=== PATIENT | male | born 1960 | race Caucasian/White ===

== ENCOUNTER 2021-01-22 08:38 | Outpatient (CLI) | payer MEDICARE, BC | END 2021-01-22 08:39 | disposition home or self-care (01) | LOC: CSHWCC 08:38 | PROVIDERS: ATTEND Nurse Practitioner Family | DX: L89.93 Pressure ulcer of unspecified site, stage 3 (principal); I87.2 Venous insufficiency (chronic) (peripheral); E11.621 Type 2 diabetes mellitus with foot ulcer; L97.509 Non-pressure chronic ulcer of other part of unspecified foot with unspecified severity; I89.0 Lymphedema, not elsewhere classified; R60.0 Localized edema; E11.40 Type 2 diabetes mellitus with diabetic neuropathy, unspecified; E11.65 Type 2 diabetes mellitus with hyperglycemia; G82.20 Paraplegia, unspecified; G89.4 Chronic pain syndrome; M12.9 Arthropathy, unspecified; M13.80 Other specified arthritis, unspecified site; E66.3 Overweight; Z85.46 Personal history of malignant neoplasm of prostate ==

== ENCOUNTER 2021-02-05 10:00 | Outpatient (CLI) | payer MEDICARE, BC | END 2021-02-05 10:01 | disposition home or self-care (01) | LOC: CSHWCC 10:00 | PROVIDERS: ATTEND Nurse Practitioner Family | DX: L89.93 Pressure ulcer of unspecified site, stage 3 (principal); I87.2 Venous insufficiency (chronic) (peripheral); E11.621 Type 2 diabetes mellitus with foot ulcer; L97.509 Non-pressure chronic ulcer of other part of unspecified foot with unspecified severity; E11.40 Type 2 diabetes mellitus with diabetic neuropathy, unspecified; E11.65 Type 2 diabetes mellitus with hyperglycemia; I89.0 Lymphedema, not elsewhere classified; R60.0 Localized edema; G82.20 Paraplegia, unspecified; G89.4 Chronic pain syndrome; M12.9 Arthropathy, unspecified; M13.80 Other specified arthritis, unspecified site; E66.3 Overweight; Z85.46 Personal history of malignant neoplasm of prostate ==

== ENCOUNTER 2021-02-12 09:37 | Outpatient (CLI) | payer MEDICARE, BC | END 2021-02-12 09:38 | disposition home or self-care (01) | LOC: CSHWCC 09:37 | PROVIDERS: ATTEND Nurse Practitioner Family | DX: L89.93 Pressure ulcer of unspecified site, stage 3 (principal); E11.621 Type 2 diabetes mellitus with foot ulcer; R60.0 Localized edema; E11.40 Type 2 diabetes mellitus with diabetic neuropathy, unspecified; E11.65 Type 2 diabetes mellitus with hyperglycemia; E66.3 Overweight; G82.20 Paraplegia, unspecified; G89.4 Chronic pain syndrome; I87.2 Venous insufficiency (chronic) (peripheral); M12.9 Arthropathy, unspecified; M13.80 Other specified arthritis, unspecified site; I89.0 Lymphedema, not elsewhere classified; Z85.46 Personal history of malignant neoplasm of prostate | CPT/HCPCS: 29581; 99213; G0463 ==

== ENCOUNTER 2021-02-26 09:08 | Outpatient (CLI) | payer MEDICARE, BC | END 2021-02-26 09:09 | disposition home or self-care (01) | LOC: CSHWCC 09:08 | PROVIDERS: ATTEND Nurse Practitioner Family | DX: L89.93 Pressure ulcer of unspecified site, stage 3 (principal); I87.2 Venous insufficiency (chronic) (peripheral); E11.621 Type 2 diabetes mellitus with foot ulcer; E11.40 Type 2 diabetes mellitus with diabetic neuropathy, unspecified; I89.0 Lymphedema, not elsewhere classified; R60.0 Localized edema; E11.65 Type 2 diabetes mellitus with hyperglycemia; G82.20 Paraplegia, unspecified; G89.4 Chronic pain syndrome; M13.80 Other specified arthritis, unspecified site; M12.9 Arthropathy, unspecified; E66.3 Overweight; Z85.46 Personal history of malignant neoplasm of prostate ==

== ENCOUNTER 2021-03-19 08:55 | Outpatient (CLI) | payer MEDICARE, BC | END 2021-03-19 08:56 | disposition home or self-care (01) | LOC: CSHWCC 08:55 | PROVIDERS: ATTEND Nurse Practitioner Family | DX: L89.93 Pressure ulcer of unspecified site, stage 3 (principal); I87.2 Venous insufficiency (chronic) (peripheral); E11.621 Type 2 diabetes mellitus with foot ulcer; E11.40 Type 2 diabetes mellitus with diabetic neuropathy, unspecified; E11.65 Type 2 diabetes mellitus with hyperglycemia; L97.509 Non-pressure chronic ulcer of other part of unspecified foot with unspecified severity; E66.3 Overweight; G82.20 Paraplegia, unspecified; G89.4 Chronic pain syndrome; I89.0 Lymphedema, not elsewhere classified; M12.9 Arthropathy, unspecified; M13.80 Other specified arthritis, unspecified site; R60.0 Localized edema; Z85.46 Personal history of malignant neoplasm of prostate | CPT/HCPCS: 29581; 97139; G0463; 99213 ==

== ENCOUNTER 2021-04-09 09:20 | Outpatient (CLI) | payer MEDICARE, BC | END 2021-04-09 09:21 | disposition home or self-care (01) | LOC: CSHWCC 09:20 | PROVIDERS: ATTEND Nurse Practitioner Family | DX: L89.93 Pressure ulcer of unspecified site, stage 3 (principal); I87.2 Venous insufficiency (chronic) (peripheral); E11.621 Type 2 diabetes mellitus with foot ulcer; L97.509 Non-pressure chronic ulcer of other part of unspecified foot with unspecified severity; E11.40 Type 2 diabetes mellitus with diabetic neuropathy, unspecified; E11.65 Type 2 diabetes mellitus with hyperglycemia; I89.0 Lymphedema, not elsewhere classified; R60.0 Localized edema; G82.20 Paraplegia, unspecified; G89.4 Chronic pain syndrome; M12.9 Arthropathy, unspecified; M13.80 Other specified arthritis, unspecified site; E66.3 Overweight; Z85.46 Personal history of malignant neoplasm of prostate | CPT/HCPCS: 99213; G0463 ==

== ENCOUNTER 2021-07-14 08:50 | Outpatient (CLI) | payer MEDICARE, BC | END 2021-07-14 08:51 | disposition home or self-care (01) | LOC: CSHWCC 08:50 | PROVIDERS: ATTEND Nurse Practitioner Family | DX: L89.93 Pressure ulcer of unspecified site, stage 3 (principal); R60.0 Localized edema | CPT/HCPCS: 97139; G0463; 99213 ==

== ENCOUNTER 2021-08-04 10:00 | Outpatient (CLI) | payer MEDICARE, BC | END 2021-08-04 10:01 | disposition home or self-care (01) | LOC: CSHWCC 10:00 | PROVIDERS: ATTEND Nurse Practitioner Family | DX: L89.93 Pressure ulcer of unspecified site, stage 3 (principal); R60.0 Localized edema | CPT/HCPCS: 29581 ==

== ENCOUNTER 2021-08-20 09:10 | Outpatient (CLI) | payer MEDICARE, BC | END 2021-08-20 09:11 | disposition home or self-care (01) | LOC: CSHWCC 09:10 | PROVIDERS: ATTEND Nurse Practitioner Family | DX: L89.93 Pressure ulcer of unspecified site, stage 3 (principal); R60.0 Localized edema | CPT/HCPCS: 29581; 97139; 97607; G0463; 99212 ==

== ENCOUNTER 2021-08-27 10:47 | Outpatient (CLI) | payer MEDICARE, BC | END 2021-08-27 10:48 | disposition home or self-care (01) | LOC: CSHWCC 10:47 | PROVIDERS: ATTEND Nurse Practitioner Family | DX: L89.93 Pressure ulcer of unspecified site, stage 3 (principal); R60.0 Localized edema | CPT/HCPCS: 29581; 97607 ==

== ENCOUNTER 2021-09-03 09:19 | Outpatient (CLI) | payer MEDICARE, BC | END 2021-09-03 09:20 | disposition home or self-care (01) | LOC: CSHWCC 09:19 | PROVIDERS: ATTEND Nurse Practitioner Family | DX: L89.893 Pressure ulcer of other site, stage 3 (principal); R60.0 Localized edema | CPT/HCPCS: 29581; 97607 ==

== ENCOUNTER 2021-09-10 11:11 | Outpatient (CLI) | payer MEDICARE, BC | END 2021-09-10 11:12 | disposition home or self-care (01) | LOC: CSHWCC 11:11 | PROVIDERS: ATTEND Nurse Practitioner Family | DX: S91.102D Unspecified open wound of left great toe without damage to nail, subsequent encounter (principal); L89.93 Pressure ulcer of unspecified site, stage 3; R60.0 Localized edema ==

== ENCOUNTER 2021-09-11 11:58 | Day surgery (SDC) | payer MEDICARE, BC ==
[2021-09-11] MEDS ORDERED: Lidocaine 1% PF 5 ML VIAL ONE (12:39)
[2021-09-11] MEDS ORDERED: Sodium Bicarbonate 2.5 MEQ/5 ML VIAL ONE (12:40)
[2021-09-11 13:11] VITALS: BP 146/74; TEMP 98.4
== END 2021-09-11 15:05 | disposition home or self-care (01) ==
LOC: CSHRAD 11:58
PROVIDERS: ATTEND Specialist
PROC: B02B1ZZ Computerized Tomography (CT Scan) of Spinal Cord using Low Osmolar Contrast (ICD-10-PCS; principal; 2021-09-11)
DX: M54.12 Radiculopathy, cervical region (principal); M48.02 Spinal stenosis, cervical region; M43.12 Spondylolisthesis, cervical region; M51.24 Other intervertebral disc displacement, thoracic region; M51.16 Intervertebral disc disorders with radiculopathy, lumbar region; M48.061 Spinal stenosis, lumbar region without neurogenic claudication; M48.07 Spinal stenosis, lumbosacral region; M96.1 Postlaminectomy syndrome, not elsewhere classified; G89.4 Chronic pain syndrome; E11.9 Type 2 diabetes mellitus without complications; Z79.4 Long term (current) use of insulin; Z79.899 Other long term (current) drug therapy; Z91.041 Radiographic dye allergy status
CPT/HCPCS: 62302; 62304; 62305; 72126; 72128; 72132

== ENCOUNTER 2021-09-17 11:32 | Outpatient (CLI) | payer MEDICARE, BC | END 2021-09-17 11:33 | disposition home or self-care (01) | LOC: CSHWCC 11:32 | PROVIDERS: ATTEND Nurse Practitioner Family | DX: S91.102D Unspecified open wound of left great toe without damage to nail, subsequent encounter (principal); L89.93 Pressure ulcer of unspecified site, stage 3; R60.0 Localized edema | CPT/HCPCS: 11750; 29581; 97607 ==

== ENCOUNTER → 2021-09-24 | Outpatient (CLI) | payer MEDICARE, BC | LOC: CSHWCC 15:16 | PROVIDERS: ATTEND Nurse Practitioner Family | DX: L89.93 Pressure ulcer of unspecified site, stage 3 (principal); R60.0 Localized edema | CPT/HCPCS: 29581; 97607 ==

== ENCOUNTER 2021-09-30 14:35 | Outpatient (CLI) | payer MEDICARE, BC | END 2021-09-30 14:36 | disposition home or self-care (01) | LOC: CSHWCC 14:35 | PROVIDERS: ATTEND Nurse Practitioner Family | DX: L89.93 Pressure ulcer of unspecified site, stage 3 (principal); S91.309D Unspecified open wound, unspecified foot, subsequent encounter; R60.0 Localized edema ==

== ENCOUNTER 2021-10-08 14:36 | Outpatient (CLI) | payer MEDICARE, BC | END 2021-10-08 14:37 | disposition home or self-care (01) | LOC: CSHWCC 14:36 | PROVIDERS: ATTEND Nurse Practitioner Family | DX: L89.93 Pressure ulcer of unspecified site, stage 3 (principal); R60.0 Localized edema ==

== ENCOUNTER 2021-10-15 11:05 | Emergency (ER) | payer MEDICARE, BC ==
[2021-10-15 13:27] LABS: #Eosinphils 0.3 10x3/uL (0.0-0.5); #Monocytes 0.4 10x3/uL (0.0-1.1); #Neutrophils 4.7 10x3/uL (1.5-8.4); %Basophils 0.5 % (0.0-2.0); %Eosinophils 3.7 % (0.0-6.0); %Monocytes 5.6 % (0.0-10.0); %Neutrophils 64.4 % (40.0-75.0); Hemoglobin 10.7 g/dL (13.5-17.5); Mean Corpuscular HGB CONC 31.9 g/dL (32.0-36.0); Mean Corpuscular Hemoglobin 26.6 pg (27.0-33.0); Mean Corpuscular Volume 83.1 fl (81.2-95.1); Mean Platelet Volume 9.4 fl (7.4-10.4); Platelet Count 207 10x3/uL (150-450); RBC Distribution Width 14.2 % (11.5-14.5); Red Blood Cell (RBC) Count 4.03 10x6/uL (4.32-5.72); White Blood Cell (WBC) Count 7.4 10x3/uL (3.5-10.5)
[2021-10-15 13:41] LABS: ALT (SGPT) 18 U/L (8-55); AST (SGOT) 15 U/L (5-34); Albumin 3.8 g/dL (3.4-4.8); Alkaline Phosphatase 79 U/L (40-110); Anion Gap 14 mmol/L (10-20); BUN (Urea Nitrogen) 19 mg/dL (8.4-25.7); Bilirubin, Total 0.5 mg/dL (0.2-1.2); Calc. Creatinine Clearance 0 mL/min (70-130); Calcium 8.6 mg/dL (7.8-10.44); Carbon Dioxide 28 mmol/L (23-31); Chloride 101 mmol/L (98-107); Estimated GFR 81; Globulin 2.8 g/dL (2.4-3.5); Glucose 114 mg/dL (80-115); Potassium 4.4 mmol/L (3.5-5.1); Protein, Total 6.6 g/dL (5.8-8.1); Sodium 139 mmol/L (136-145)
[2021-10-15 14:06] LABS: Bilirubin Neg (Negative); Blood, Urine Negative (Negative); Clarity Clear (Clear); Glucose, Urine (Dipstick) >=1000 mg/dL (Negative); Ketone, Urine 5 mg/dL (Negative); Leukocyte 25 (Negative); Nitrite Negative (Negative); Protein, Urine (Dipstick) 15 mg/dl (Neg-Trace); Urobilinogen Normal mg/dL (Less than 2); pH, Urine 6.5 (5.0-9.0)
[2021-10-15 14:14] LABS: Bacteria/HPF Rare-Few HPF (None Seen); RBC/HPF None Seen HPF (0-3); Squamous Epithelial 0-3 HPF (0-3); WBC/HPF 0-3 HPF (0-3)
[2021-10-15] MEDS ORDERED: Magnevist 469MG/ML 20 ML VIAL ONE (15:46)
[2021-10-15] MEDS ORDERED: Morphine 4 MG/ML VIAL ONE ×2 (16:40→22:08)
[2021-10-15] MEDS ORDERED: Dexamethasone 4 mg/ml Vial ONE (22:42)
== END 2021-10-16 00:48 | disposition short-term general hospital (02) ==
LOC: CSHERS 11:05
DX: G95.20 Unspecified cord compression (principal); E11.9 Type 2 diabetes mellitus without complications; Z79.84 Long term (current) use of oral hypoglycemic drugs; Z79.4 Long term (current) use of insulin
CPT/HCPCS: 36415; 72128; 72146; 72158; 80053; 81003; 81015; 85025; J1100; J2270

== ENCOUNTER 2021-11-17 14:01 | Outpatient (CLI) | payer MEDICARE, BC | END 2021-11-17 14:02 | disposition home or self-care (01) | LOC: CSHWCC 14:01 | PROVIDERS: ATTEND Preventive Medicine Undersea and Hyperbaric Medicine | DX: L89.93 Pressure ulcer of unspecified site, stage 3 (principal); R60.0 Localized edema | CPT/HCPCS: 29581; 36416; 87070; 87077; 87186; 87205; 97607 ==

== ENCOUNTER 2021-11-27 10:50 | Outpatient (CLI) | payer MEDICARE, BC | END 2021-11-27 10:51 | disposition home or self-care (01) | LOC: CSHWCC 10:50 | PROVIDERS: ATTEND Preventive Medicine Undersea and Hyperbaric Medicine | DX: T81.89XD Other complications of procedures, not elsewhere classified, subsequent encounter (principal); L89.93 Pressure ulcer of unspecified site, stage 3; R60.0 Localized edema ==

== ENCOUNTER 2021-12-04 13:00 | Outpatient (CLI) | payer MEDICARE, BC | END 2021-12-04 13:01 | disposition home or self-care (01) | LOC: CSHWCC 13:00 | PROVIDERS: ATTEND Preventive Medicine Undersea and Hyperbaric Medicine | DX: T81.89XD Other complications of procedures, not elsewhere classified, subsequent encounter (principal); L89.93 Pressure ulcer of unspecified site, stage 3; R60.0 Localized edema | CPT/HCPCS: 97139; G0463; 99213 ==

== ENCOUNTER 2021-12-18 14:47 | Outpatient (CLI) | payer MEDICARE, BC | END 2021-12-18 14:48 | disposition home or self-care (01) | LOC: CSHWCC 14:47 | PROVIDERS: ATTEND Nurse Practitioner Family | DX: L89.93 Pressure ulcer of unspecified site, stage 3 (principal); R60.0 Localized edema | CPT/HCPCS: 97139; G0463; 99213 ==

== ENCOUNTER 2021-12-31 13:18 | Outpatient (CLI) | payer MEDICARE, BC | END 2021-12-31 13:19 | disposition home or self-care (01) | LOC: CSHWCC 13:18 | PROVIDERS: ATTEND Preventive Medicine Undersea and Hyperbaric Medicine | DX: L89.93 Pressure ulcer of unspecified site, stage 3 (principal); R60.0 Localized edema ==

== ENCOUNTER 2023-12-27 10:57 | Outpatient (CLI) | payer MEDICARE, BC | END 2023-12-27 10:58 | disposition home or self-care (01) | LOC: CSHWCC 10:57 | PROVIDERS: ATTEND Nurse Practitioner Family | DX: L89.613 Pressure ulcer of right heel, stage 3 (principal); L89.893 Pressure ulcer of other site, stage 3; E11.621 Type 2 diabetes mellitus with foot ulcer; M21.371 Foot drop, right foot; I73.9 Peripheral vascular disease, unspecified; G82.20 Paraplegia, unspecified; M86.171 Other acute osteomyelitis, right ankle and foot | CPT/HCPCS: 11042; 11045 ==

== ENCOUNTER 2024-01-27 14:49 | Outpatient (CLI) | payer MEDICARE, BC | END 2024-01-27 14:50 | disposition home or self-care (01) | LOC: CSHWCC 14:49 | PROVIDERS: ATTEND Nurse Practitioner Family | DX: L89.613 Pressure ulcer of right heel, stage 3 (principal); T81.31XD Disruption of external operation (surgical) wound, not elsewhere classified, subsequent encounter; E11.621 Type 2 diabetes mellitus with foot ulcer; L97.509 Non-pressure chronic ulcer of other part of unspecified foot with unspecified severity; M21.371 Foot drop, right foot; E11.51 Type 2 diabetes mellitus with diabetic peripheral angiopathy without gangrene; G82.20 Paraplegia, unspecified; M86.171 Other acute osteomyelitis, right ankle and foot | CPT/HCPCS: 11042 ==

== ENCOUNTER 2024-02-03 15:24 | Outpatient (CLI) | payer MEDICARE, BC | END 2024-02-03 15:25 | disposition home or self-care (01) | LOC: CSHWCC 15:24 | PROVIDERS: ATTEND Nurse Practitioner Family | DX: L89.613 Pressure ulcer of right heel, stage 3 (principal); T81.31XD Disruption of external operation (surgical) wound, not elsewhere classified, subsequent encounter; E11.621 Type 2 diabetes mellitus with foot ulcer; L97.509 Non-pressure chronic ulcer of other part of unspecified foot with unspecified severity; M21.371 Foot drop, right foot; E11.51 Type 2 diabetes mellitus with diabetic peripheral angiopathy without gangrene; G82.20 Paraplegia, unspecified; M86.171 Other acute osteomyelitis, right ankle and foot | CPT/HCPCS: 11042; 15271; Q4133 ==

== ENCOUNTER 2024-02-07 11:44 | Outpatient (CLI) | payer MEDICARE, BC | END 2024-02-07 11:45 | disposition home or self-care (01) | LOC: CSHWCC 11:44 | PROVIDERS: ATTEND Nurse Practitioner Family | DX: L89.613 Pressure ulcer of right heel, stage 3 (principal); T81.31XD Disruption of external operation (surgical) wound, not elsewhere classified, subsequent encounter; E11.621 Type 2 diabetes mellitus with foot ulcer; M21.371 Foot drop, right foot; E11.59 Type 2 diabetes mellitus with other circulatory complications; G82.20 Paraplegia, unspecified; M86.171 Other acute osteomyelitis, right ankle and foot | CPT/HCPCS: 11042; 15271; Q4133 ==

== ENCOUNTER 2024-02-14 11:31 | Outpatient (CLI) | payer MEDICARE, BC | END 2024-02-14 11:32 | disposition home or self-care (01) | LOC: CSHWCC 11:31 | PROVIDERS: ATTEND Nurse Practitioner Family | DX: E11.621 Type 2 diabetes mellitus with foot ulcer (principal); L89.613 Pressure ulcer of right heel, stage 3; T81.31XD Disruption of external operation (surgical) wound, not elsewhere classified, subsequent encounter; M21.371 Foot drop, right foot; E11.51 Type 2 diabetes mellitus with diabetic peripheral angiopathy without gangrene; I73.9 Peripheral vascular disease, unspecified; G82.20 Paraplegia, unspecified; M86.171 Other acute osteomyelitis, right ankle and foot | CPT/HCPCS: 11042; 15271; Q4133 ==

== ENCOUNTER 2024-02-21 12:25 | Outpatient (CLI) | payer MEDICARE, BC | END 2024-02-21 12:26 | disposition home or self-care (01) | LOC: CSHWCC 12:25 | PROVIDERS: ATTEND Nurse Practitioner Family | DX: L89.613 Pressure ulcer of right heel, stage 3 (principal); E11.621 Type 2 diabetes mellitus with foot ulcer; L97.512 Non-pressure chronic ulcer of other part of right foot with fat layer exposed; M21.371 Foot drop, right foot; E11.59 Type 2 diabetes mellitus with other circulatory complications; G82.20 Paraplegia, unspecified; M86.171 Other acute osteomyelitis, right ankle and foot | CPT/HCPCS: 15271; Q4133 ==

== ENCOUNTER 2024-02-28 12:07 | Outpatient (CLI) | payer MEDICARE, BC | END 2024-02-28 12:08 | disposition home or self-care (01) | LOC: CSHWCC 12:07 | PROVIDERS: ATTEND Family Medicine | DX: E11.621 Type 2 diabetes mellitus with foot ulcer (principal); L89.613 Pressure ulcer of right heel, stage 3; L97.512 Non-pressure chronic ulcer of other part of right foot with fat layer exposed; M21.371 Foot drop, right foot; E11.51 Type 2 diabetes mellitus with diabetic peripheral angiopathy without gangrene; I73.9 Peripheral vascular disease, unspecified; G82.20 Paraplegia, unspecified; M86.171 Other acute osteomyelitis, right ankle and foot | CPT/HCPCS: 11042 ==

== ENCOUNTER 2024-03-06 10:11 | Outpatient (CLI) | payer MEDICARE, BC | END 2024-03-06 10:12 | disposition home or self-care (01) | LOC: CSHWCC 10:11 | PROVIDERS: ATTEND Nurse Practitioner Family | DX: L89.613 Pressure ulcer of right heel, stage 3 (principal); L97.512 Non-pressure chronic ulcer of other part of right foot with fat layer exposed; E11.621 Type 2 diabetes mellitus with foot ulcer; E11.51 Type 2 diabetes mellitus with diabetic peripheral angiopathy without gangrene; G82.20 Paraplegia, unspecified; M86.171 Other acute osteomyelitis, right ankle and foot; M21.371 Foot drop, right foot | CPT/HCPCS: 15271; Q4133 ==

== ENCOUNTER 2024-03-13 14:15 | Outpatient (CLI) | payer MEDICARE, BC | END 2024-03-13 14:16 | disposition home or self-care (01) | LOC: CSHWCC 14:15 | PROVIDERS: ATTEND Nurse Practitioner Family | DX: L89.613 Pressure ulcer of right heel, stage 3 (principal); E11.621 Type 2 diabetes mellitus with foot ulcer; L97.512 Non-pressure chronic ulcer of other part of right foot with fat layer exposed; M21.371 Foot drop, right foot; G82.20 Paraplegia, unspecified; M86.171 Other acute osteomyelitis, right ankle and foot; E11.59 Type 2 diabetes mellitus with other circulatory complications | CPT/HCPCS: 11042 ==

== ENCOUNTER 2024-03-20 12:45 | Outpatient (CLI) | payer MEDICARE, BC | END 2024-03-20 12:46 | disposition home or self-care (01) | LOC: CSHWCC 12:45 | PROVIDERS: ATTEND Nurse Practitioner Family | DX: L89.613 Pressure ulcer of right heel, stage 3 (principal); E11.621 Type 2 diabetes mellitus with foot ulcer; M21.371 Foot drop, right foot; G82.20 Paraplegia, unspecified; M86.171 Other acute osteomyelitis, right ankle and foot; E11.59 Type 2 diabetes mellitus with other circulatory complications | CPT/HCPCS: 15271; Q4133 ==

== ENCOUNTER 2024-03-27 11:33 | Outpatient (CLI) | payer MEDICARE, BC | END 2024-03-27 11:34 | disposition home or self-care (01) | LOC: CSHWCC 11:33 | PROVIDERS: ATTEND Nurse Practitioner Family | DX: L89.613 Pressure ulcer of right heel, stage 3 (principal); E11.621 Type 2 diabetes mellitus with foot ulcer; M21.371 Foot drop, right foot; G82.20 Paraplegia, unspecified; M86.171 Other acute osteomyelitis, right ankle and foot; E11.59 Type 2 diabetes mellitus with other circulatory complications; L97.509 Non-pressure chronic ulcer of other part of unspecified foot with unspecified severity | CPT/HCPCS: 15271; Q4133 ==

== ENCOUNTER 2024-04-05 12:04 | Outpatient (CLI) | payer MEDICARE, BC | END 2024-04-05 12:05 | disposition home or self-care (01) | LOC: CSHWCC 12:04 | PROVIDERS: ATTEND Nurse Practitioner Family | DX: L89.613 Pressure ulcer of right heel, stage 3 (principal); E11.621 Type 2 diabetes mellitus with foot ulcer; M21.371 Foot drop, right foot; G82.20 Paraplegia, unspecified; M86.171 Other acute osteomyelitis, right ankle and foot; E11.59 Type 2 diabetes mellitus with other circulatory complications | CPT/HCPCS: 15271; Q4133 ==

== ENCOUNTER 2024-04-10 12:01 | Outpatient (CLI) | payer MEDICARE, BC | END 2024-04-10 12:02 | disposition home or self-care (01) | LOC: CSHWCC 12:01 | PROVIDERS: ATTEND Nurse Practitioner Family | DX: E11.621 Type 2 diabetes mellitus with foot ulcer (principal); L89.613 Pressure ulcer of right heel, stage 3; L89.893 Pressure ulcer of other site, stage 3; M21.371 Foot drop, right foot; E11.51 Type 2 diabetes mellitus with diabetic peripheral angiopathy without gangrene; I73.9 Peripheral vascular disease, unspecified; G82.20 Paraplegia, unspecified; M86.171 Other acute osteomyelitis, right ankle and foot | CPT/HCPCS: 11042; 15271; G0463; Q4133; 99212 ==

== ENCOUNTER 2024-04-17 11:31 | Outpatient (CLI) | payer MEDICARE, BC | END 2024-04-17 11:32 | disposition home or self-care (01) | LOC: CSHWCC 11:31 | PROVIDERS: ATTEND Nurse Practitioner Family | DX: L89.613 Pressure ulcer of right heel, stage 3 (principal); E11.621 Type 2 diabetes mellitus with foot ulcer; L97.509 Non-pressure chronic ulcer of other part of unspecified foot with unspecified severity; L89.893 Pressure ulcer of other site, stage 3; E11.69 Type 2 diabetes mellitus with other specified complication; M86.171 Other acute osteomyelitis, right ankle and foot; M21.371 Foot drop, right foot; E11.51 Type 2 diabetes mellitus with diabetic peripheral angiopathy without gangrene; G82.20 Paraplegia, unspecified | CPT/HCPCS: 11042; 15271; 87070; 87077; 87186; 87205; 99213; G0463; Q4133 ==

== ENCOUNTER 2024-04-25 10:56 | Outpatient (CLI) | payer MEDICARE, BC | END 2024-04-25 10:57 | disposition home or self-care (01) | LOC: CSHWCC 10:56 | PROVIDERS: ATTEND Nurse Practitioner Family | DX: E11.621 Type 2 diabetes mellitus with foot ulcer (principal); L89.613 Pressure ulcer of right heel, stage 3; M86.171 Other acute osteomyelitis, right ankle and foot; L89.893 Pressure ulcer of other site, stage 3; M21.371 Foot drop, right foot; E11.51 Type 2 diabetes mellitus with diabetic peripheral angiopathy without gangrene; I73.9 Peripheral vascular disease, unspecified; G82.20 Paraplegia, unspecified | CPT/HCPCS: 11042 ==

== ENCOUNTER 2024-05-01 11:31 | Outpatient (CLI) | payer MEDICARE, BC | END 2024-05-01 11:32 | disposition home or self-care (01) | LOC: CSHWCC 11:31 | PROVIDERS: ATTEND Nurse Practitioner Family | DX: L89.613 Pressure ulcer of right heel, stage 3 (principal); L89.893 Pressure ulcer of other site, stage 3; E11.621 Type 2 diabetes mellitus with foot ulcer; L97.509 Non-pressure chronic ulcer of other part of unspecified foot with unspecified severity; M86.171 Other acute osteomyelitis, right ankle and foot; M21.371 Foot drop, right foot; I73.9 Peripheral vascular disease, unspecified; G82.20 Paraplegia, unspecified | CPT/HCPCS: 11042; 87070; 87077; 87186; 87205 ==

== ENCOUNTER 2024-10-16 14:37 | Outpatient (CLI) | payer MEDICARE, BC | END 2024-10-16 14:38 | disposition home or self-care (01) | LOC: CSHWCC 14:37 | PROVIDERS: ATTEND Nurse Practitioner Family | DX: L89.613 Pressure ulcer of right heel, stage 3 (principal); L89.893 Pressure ulcer of other site, stage 3; E11.621 Type 2 diabetes mellitus with foot ulcer; L97.509 Non-pressure chronic ulcer of other part of unspecified foot with unspecified severity; M86.171 Other acute osteomyelitis, right ankle and foot; M21.371 Foot drop, right foot; I73.9 Peripheral vascular disease, unspecified; G82.20 Paraplegia, unspecified | CPT/HCPCS: 11042 ==

== ENCOUNTER 2024-10-30 10:09 | Outpatient (CLI) | payer MEDICARE, BC | END 2024-10-30 10:10 | disposition home or self-care (01) | LOC: CSHWCC 10:09 | PROVIDERS: ATTEND Nurse Practitioner Family | DX: L89.613 Pressure ulcer of right heel, stage 3 (principal); L89.893 Pressure ulcer of other site, stage 3; E11.621 Type 2 diabetes mellitus with foot ulcer; L97.509 Non-pressure chronic ulcer of other part of unspecified foot with unspecified severity; M86.171 Other acute osteomyelitis, right ankle and foot; M21.371 Foot drop, right foot; E11.51 Type 2 diabetes mellitus with diabetic peripheral angiopathy without gangrene; G82.20 Paraplegia, unspecified | CPT/HCPCS: 11042 ==

== ENCOUNTER 2024-11-06 11:15 | Outpatient (CLI) | payer MEDICARE, BC | END 2024-11-06 11:16 | disposition home or self-care (01) | LOC: CSHWCC 11:15 | PROVIDERS: ATTEND Nurse Practitioner Family | DX: L89.613 Pressure ulcer of right heel, stage 3 (principal); L89.893 Pressure ulcer of other site, stage 3; E11.621 Type 2 diabetes mellitus with foot ulcer; L97.509 Non-pressure chronic ulcer of other part of unspecified foot with unspecified severity; G82.20 Paraplegia, unspecified; M21.371 Foot drop, right foot; E11.59 Type 2 diabetes mellitus with other circulatory complications; M86.171 Other acute osteomyelitis, right ankle and foot | CPT/HCPCS: 11042 ==

== ENCOUNTER 2024-11-13 11:00 | Outpatient (CLI) | payer MEDICARE, BC | END 2024-11-13 11:01 | disposition home or self-care (01) | LOC: CSHWCC 11:00 | PROVIDERS: ATTEND Nurse Practitioner Family | DX: L89.613 Pressure ulcer of right heel, stage 3 (principal); L89.893 Pressure ulcer of other site, stage 3; E11.621 Type 2 diabetes mellitus with foot ulcer; L97.509 Non-pressure chronic ulcer of other part of unspecified foot with unspecified severity; M86.171 Other acute osteomyelitis, right ankle and foot; M21.371 Foot drop, right foot; E11.59 Type 2 diabetes mellitus with other circulatory complications; G82.20 Paraplegia, unspecified ==

== ENCOUNTER 2024-11-21 13:44 | Outpatient (CLI) | payer MEDICARE, BC | END 2024-11-21 13:45 | disposition home or self-care (01) | LOC: CSHWCC 13:44 | PROVIDERS: ATTEND Nurse Practitioner Family | DX: L89.613 Pressure ulcer of right heel, stage 3 (principal); L89.893 Pressure ulcer of other site, stage 3; E11.621 Type 2 diabetes mellitus with foot ulcer; L97.509 Non-pressure chronic ulcer of other part of unspecified foot with unspecified severity; M86.171 Other acute osteomyelitis, right ankle and foot; M21.371 Foot drop, right foot; I73.9 Peripheral vascular disease, unspecified; G82.20 Paraplegia, unspecified | CPT/HCPCS: 11042; 97597 ==

== ENCOUNTER 2024-11-27 11:31 | Outpatient (CLI) | payer MEDICARE, BC | END 2024-11-27 11:32 | disposition home or self-care (01) | LOC: CSHWCC 11:31 | PROVIDERS: ATTEND Nurse Practitioner Family | DX: L89.893 Pressure ulcer of other site, stage 3 (principal); E11.621 Type 2 diabetes mellitus with foot ulcer; L97.509 Non-pressure chronic ulcer of other part of unspecified foot with unspecified severity; M86.171 Other acute osteomyelitis, right ankle and foot; M21.371 Foot drop, right foot; E11.59 Type 2 diabetes mellitus with other circulatory complications; G82.20 Paraplegia, unspecified | CPT/HCPCS: 11042 ==

== ENCOUNTER 2024-12-04 11:18 | Outpatient (CLI) | payer MEDICARE, BC | END 2024-12-04 11:19 | disposition home or self-care (01) | LOC: CSHWCC 11:18 | PROVIDERS: ATTEND Nurse Practitioner Family | DX: L89.893 Pressure ulcer of other site, stage 3 (principal); E11.621 Type 2 diabetes mellitus with foot ulcer; L97.509 Non-pressure chronic ulcer of other part of unspecified foot with unspecified severity; M86.171 Other acute osteomyelitis, right ankle and foot; M21.371 Foot drop, right foot; G82.20 Paraplegia, unspecified; E11.59 Type 2 diabetes mellitus with other circulatory complications | CPT/HCPCS: 11042; G0463; 99213 ==

== ENCOUNTER 2024-12-11 11:10 | Outpatient (CLI) | payer MEDICARE, BC | END 2024-12-11 11:11 | disposition home or self-care (01) | LOC: CSHWCC 11:10 | PROVIDERS: ATTEND Nurse Practitioner Family | DX: L89.893 Pressure ulcer of other site, stage 3 (principal); E11.621 Type 2 diabetes mellitus with foot ulcer; L97.509 Non-pressure chronic ulcer of other part of unspecified foot with unspecified severity; M86.171 Other acute osteomyelitis, right ankle and foot; M21.371 Foot drop, right foot; E11.51 Type 2 diabetes mellitus with diabetic peripheral angiopathy without gangrene; G82.20 Paraplegia, unspecified | CPT/HCPCS: 11042 ==

== ENCOUNTER 2024-12-18 11:05 | Outpatient (CLI) | payer MEDICARE, BC | END 2024-12-18 11:06 | disposition home or self-care (01) | LOC: CSHWCC 11:05 | PROVIDERS: ATTEND Nurse Practitioner Family | DX: L89.893 Pressure ulcer of other site, stage 3 (principal); E11.621 Type 2 diabetes mellitus with foot ulcer; L97.509 Non-pressure chronic ulcer of other part of unspecified foot with unspecified severity; M86.171 Other acute osteomyelitis, right ankle and foot; M12.371 Palindromic rheumatism, right ankle and foot; E11.51 Type 2 diabetes mellitus with diabetic peripheral angiopathy without gangrene; G82.20 Paraplegia, unspecified | CPT/HCPCS: 11042 ==

== ENCOUNTER 2025-01-01 11:00 | Outpatient (CLI) | payer MEDICARE, BC | END 2025-01-01 11:01 | disposition home or self-care (01) | LOC: CSHWCC 11:00 | PROVIDERS: ATTEND Nurse Practitioner Family | DX: L89.893 Pressure ulcer of other site, stage 3 (principal); E11.621 Type 2 diabetes mellitus with foot ulcer; L97.509 Non-pressure chronic ulcer of other part of unspecified foot with unspecified severity; E11.51 Type 2 diabetes mellitus with diabetic peripheral angiopathy without gangrene; E11.69 Type 2 diabetes mellitus with other specified complication; M86.171 Other acute osteomyelitis, right ankle and foot; M21.371 Foot drop, right foot; G82.20 Paraplegia, unspecified | CPT/HCPCS: 11042; G0463; 99213 ==

== ENCOUNTER 2025-01-08 11:41 | Outpatient (CLI) | payer BC, MEDICARE | END 2025-01-08 11:42 | disposition home or self-care (01) | LOC: CSHWCC 11:41 | PROVIDERS: ATTEND Nurse Practitioner Family | DX: L89.893 Pressure ulcer of other site, stage 3 (principal); S80.211D Abrasion, right knee, subsequent encounter; E11.621 Type 2 diabetes mellitus with foot ulcer; L97.509 Non-pressure chronic ulcer of other part of unspecified foot with unspecified severity; M86.171 Other acute osteomyelitis, right ankle and foot; M21.371 Foot drop, right foot; G82.20 Paraplegia, unspecified; E11.51 Type 2 diabetes mellitus with diabetic peripheral angiopathy without gangrene | CPT/HCPCS: 11042 ==

== ENCOUNTER 2025-02-05 11:06 | Outpatient (CLI) | payer MEDICARE | END 2025-02-05 11:07 | disposition home or self-care (01) | LOC: CSHWCC 11:06 | PROVIDERS: ATTEND Nurse Practitioner Family | DX: L89.893 Pressure ulcer of other site, stage 3 (principal); S80.211D Abrasion, right knee, subsequent encounter; E11.621 Type 2 diabetes mellitus with foot ulcer; L97.509 Non-pressure chronic ulcer of other part of unspecified foot with unspecified severity; M21.371 Foot drop, right foot; E11.51 Type 2 diabetes mellitus with diabetic peripheral angiopathy without gangrene; G82.20 Paraplegia, unspecified | CPT/HCPCS: 11042 ==

== ENCOUNTER 2025-02-12 11:05 | Outpatient (CLI) | payer MEDICARE | END 2025-02-12 11:06 | disposition home or self-care (01) | LOC: CSHWCC 11:05 | PROVIDERS: ATTEND Nurse Practitioner Family | DX: L89.893 Pressure ulcer of other site, stage 3 (principal); E11.621 Type 2 diabetes mellitus with foot ulcer; L97.509 Non-pressure chronic ulcer of other part of unspecified foot with unspecified severity; E11.69 Type 2 diabetes mellitus with other specified complication; M86.171 Other acute osteomyelitis, right ankle and foot; E11.51 Type 2 diabetes mellitus with diabetic peripheral angiopathy without gangrene; S80.211D Abrasion, right knee, subsequent encounter; G82.20 Paraplegia, unspecified; M21.371 Foot drop, right foot | CPT/HCPCS: 11042 ==

== ENCOUNTER 2025-02-19 11:23 | Outpatient (CLI) | payer MEDICARE | END 2025-02-19 11:24 | disposition home or self-care (01) | LOC: CSHWCC 11:23 | PROVIDERS: ATTEND Nurse Practitioner Family | DX: L89.893 Pressure ulcer of other site, stage 3 (principal); E11.621 Type 2 diabetes mellitus with foot ulcer; L97.509 Non-pressure chronic ulcer of other part of unspecified foot with unspecified severity; E11.51 Type 2 diabetes mellitus with diabetic peripheral angiopathy without gangrene; S80.211D Abrasion, right knee, subsequent encounter; M86.171 Other acute osteomyelitis, right ankle and foot; M21.371 Foot drop, right foot; G82.20 Paraplegia, unspecified | CPT/HCPCS: 11042 ==

== ENCOUNTER 2025-03-07 10:51 | Outpatient (CLI) | payer MEDICARE | END 2025-03-07 10:52 | disposition home or self-care (01) | LOC: CSHWCC 10:51 | PROVIDERS: ATTEND Nurse Practitioner Family | DX: E11.621 Type 2 diabetes mellitus with foot ulcer (principal); L89.893 Pressure ulcer of other site, stage 3; M86.171 Other acute osteomyelitis, right ankle and foot; M21.371 Foot drop, right foot; E11.51 Type 2 diabetes mellitus with diabetic peripheral angiopathy without gangrene; G82.20 Paraplegia, unspecified | CPT/HCPCS: 11042 ==